=== PATIENT | male | born 1965 | race Caucasian/White ===

== ENCOUNTER 2023-08-12 12:25 | Emergency (ER) | payer BC, SELFPAY ==
[2023-08-12] VITALS (11 sets, daily range): BP systolic 131–163; BP diastolic 83–94; PULSE 69–88; RESP 16; TEMP 36.6; O2SAT 90–97; BMI 30.5
--- NOTE | 2023-08-12 12:39 | ED_ITS ---
HPI - General Adult General Time Seen by Provider: 12:39 Date Seen: 08/12/23 Chief complaint: Shortness of Breath/Dyspnea Stated complaint: Shortness of breath, tightness in chest Time Seen by Provider: 08/12/23 12:30 Source: patient and RN notes reviewed Mode of arrival: ambulatory Limitations: no limitations History of Present Illness HPI narrative: This 57-year-old male is coming into the ER with concerns of chest tightness/heaviness, brain fog, intermittent tingling on the left side of his fingers and toes. Patient started with these symptoms yesterday, awoke with them when he was ice fishing. He was ice fishing with just his son. There are no known ill contacts. He has not had any fevers or chills, no shortness of breath, no sense of any fast heart rate but states he does just feel like his heart is beating ?heavier?, no respiratory symptoms with this such as cough, no nasal drainage, no sore throat, no headache. He does feel just a sense of brain fog. He has noted no visual changes such as blurry vision or double vision. He has had no change in appetite, no reflux, no heartburn, no nausea or vomiting, no abdominal pain, no diarrhea. He took an 81 mg aspirin with his lisinopril and atorvastatin which are as usual medicines, did take the 81 mg aspirin this morning. He works at the [employer] in maintenance, just felt like he probably s hould not be there with the job he performs. He has had no prior cardiac or respiratory diagnoses. As far as family history, there is dementia with his dad and paternal grandfather, relates that many relatives have lived into the 90s. He has noticed no weakness of his extremities, gait has been normal, has not been dropping anything. He cannot really tell me if the tingling feeling feels numb or more tingly. He states he is really not having it right now, it is just been intermittent in the fingers and toes on the left side. His chest discomfort is more like heaviness and is certainly not as bad as what it has been per his report at this time. Related Data Home Medications Medication Instructions Recorded Confirmed atorvastatin 20 mg tablet 20 mg PO DAILY 08/12/23 08/12/23 lisinopril 20 mg tablet 20 mg PO DAILY 08/12/23 08/12/23 Allergies Allergy/AdvReac Type Severity Reaction Status Date / Time No Known Drug Allergies Allergy Verified 08/12/23 12:33 Review of Systems Status of ROS: Reports: 10 or more systems reviewed and unremarkable except as noted in History and below [facility] Social History Smoking Status: Never smoker Do you use any of these nicotine containing products: None Second hand tobacco smoke exposure: No How often do you have a drink containing alcohol: never How often do you have six or more drinks on one occasion: Never AUDIT-C Alcohol total score: 0 Non-prescribed substance use: denies use service: No Exam Const: Vital Signs, click to edit/add: Vital Signs - 24 hr 08/12/23 12:27 08/12/23 12:46 08/12/23 12:59 Temperature 97.8 F Pulse Rate 81 Pulse Rate [Pulse Oximeter] 88 Respiratory Rate 16 Blood Pressure Blood Pressure [Ri ght Upper Arm] 163/88 H Pulse Oximetry 97 97 95 Oxygen Delivery Me thod Room Air 08/12/23 13:00 08/12/23 13:01 08/12/23 13:02 Temperature Pulse Rate 87 83 69 Pulse Rate [Pulse Oximeter] Respiratory Rate Blood Pressure 141/94 H 141/89 H Blood Pressure [Ri ght Upper Arm] Pulse Oximetry 91 94 90 Oxygen Delivery Me thod 08/12/23 13:30 08/12/23 14:00 08/12/23 14:01 Temperature Pulse Rate 80 79 78 Pulse Rate [Pulse Oximeter] Respiratory Rate Blood Pressure 131/83 Blood Pressure [Ri ght Upper Arm] Pulse Oximetry 92 94 95 Oxygen Delivery Me thod 08/12/23 14:02 08/12/23 14:30 Temperature Pulse Rate 75 81 Pulse Rate [Pulse Oximeter] Respiratory Rate Blood Pressure Blood Pressure [Ri ght Upper Arm] Pulse Oximetry 95 95 Oxygen Delivery Me thod This 57-year-old male is alert, interactive, no apparent distress. Pupils equal round reactive, sclera clear, extraocular muscles intact. Symmetrical facial function, speech is normal. Neck is supple, no cervical adenopathy, no thyromegaly masses or nodules, do not see any jugular venous distension. He sits up easily, lungs are clear, good air entry, no wheezing or crackles. CV regular rate and rhythm, no murmur, normal S1-S2, no S3-S4. Abdomen is soft, nontender, nondistended, no organomegaly. He has no reproducible chest wall tenderness. He has normal pinprick sensation in his fingers, symmetrical. Strength is 5/5 and symmetrical through out upper and lower extremities, has normal rapid alternating finger movements, see no tremor. His gait was normal ambulating in. Documenting provider has reviewed patient's vital signs: yes Course Course ED Course: This is a 57-year-old male is exhibiting chest symptoms, sense of brain fog but also complaint of intermittent left toes and fingers tingling. Will be getting EKG, have him on cardiac monitoring and pulse oximetry. Will look at a point of care troponin but get full complement of labs. His chest symptoms are minimal at this time, is exhibiting no neurologic symptoms at this time. Will continue to monitor. Nursing staff did appropriately do a triple viral swab on this patient which is also pending. He is currently hemodynamically stable, there is a vast differential for his symptoms, difficult to tie all of his symptoms together. Reevaluation(s) Time of Reevaluation #1: 14:41 Reevaluation #1: Have reviewed with patient his negative head CT, his normal labs. He essentially has had the chest symptoms since yesterday, are better today. They were there all day yesterday. I have reviewed with him that we can say that he has not had a heart attack. We have not conclusively ruled out underlying ischemic heart disease however. He is aware that if he has progressive or worsening symptoms, would recommend re-evaluation. He will need a cardiac stress test followed up. We also did discuss that if he has progressive symptoms that her seeming COVID like, would recommend retesting for COVID. Sometimes early on, COVID test can be negative. At this time, will plan to discharge to home for further outpatient follow-up. Will provide a note to be off work the next 2 days. Consultations Consultation #1: Did review with Dr. Crum on-call for stroke I reviewed the case. He would proceed with a head CT but if that is normal, would stop there. He has seen through the years that many patients with atypical left-sided chest symptoms will get left-sided peripheral symptoms. The fact that there are no facial symptoms with this, it is positive symptomatology such as tingling and intermittent is reassuring. If the head CT is normal, he would stop the neurologic evaluation there. Time: 13:29 Vital Signs Vital signs: Initial Vital Signs Temperature 97.8 F 08/12/23 12:27 Temperature Source Temporal Artery Scan 08/12/23 12:27 Pulse Rate 88 08/12/23 12:27 Respiratory Rate 16 08/12/23 12:27 Blood Pressure 163/88 H 08/12/23 12:27 Blood Pressure Mean 113 H 08/12/23 12:27 Blood Pressure Position Sitting 08/12/23 12:27 Pulse Oximetry 97 08/12/23 12:27 Oxygen Delivery Method Room Air 08/12/23 12:27 Vital Signs Temperature 97.8 F 08/12/23 12:27 Pulse Rate 88 08/12/23 12:27 Respiratory Rate 16 08/12/23 12:27 Blood Pressure 163/88 H 08/12/23 12:27 Pulse Oximetry 97 08/12/23 12:27 Oxygen Delivery Method Room Air 08/12/23 12:27 Temperature 97.8 F 08/12/23 12:27 Pulse Rate 81 08/12/23 14:30 Respiratory Rate 16 08/12/23 12:27 Blood Pressure 131/83 08/12/23 14:01 Pulse Oximetry 95 08/12/23 14:30 Oxygen Delivery Method Room Air 08/12/23 12:27 Medical Decision Making Lab Data Labs: Lab Results 08/12/23 08/12/23 08/12/23 Range/Units 12:30 12:47 12:50 WBC 6.54 (4.50-11.00) K/uL RBC 5.38 (4.30-5.90) m/uL Hgb 16.3 (13.5-17.5) gm/dL Hct 47.8 (37.0-53.0) % MCV 89 (80-100) fL MCH 30 (26-34) pg MCHC 34 (32-36) gm/dL RDW Coeff of [place] 12.1 (11.5-15.5) % Plt Count 226 (140-440) K/uL Neut % (Auto) 71.3 (42.0-72.0) % Lymph % (Auto) 19.3 L (20-44) % [place] % (Auto) 8.4 (0.0-11.0) % Eos % (Auto) 0.5 (0.0-7.0) % Baso % (Auto) 0.3 (0.0-3.0) % Neut # (Auto) 4.67 (1.7-7.0) K/uL Lymph # (Auto) 1.30 (0.90-2.90) K/uL [place] # (Auto) 0.50 (0.00-0.90) K/UL Eos # (Auto) 0.03 (0.00-0.50) K/uL Baso # (Auto) 0.02 (0.00-0.30) K/uL Abs Immat Gran (auto) 0.01 (0.00-0.30) K/uL Imm/Tot Granulo (auto) 0.2 % D-Dimer Quant (PE/DVT) 0.33 (0.00-0.50) ug/ml Sodium 139 (135-149) mmol/L Potassium 3.9 (3.6-5.1) mmol/L Chloride 105 (96-114) mmol/L Carbon Dioxide 26 (20-32) mmol/L Anion Gap 8 (7-15) mEq/L BUN 15 (7-30) mg/dL Creatinine 0.8 (0.5-1.5) mg/dL Estimated Creat Clear 110.47 Estimated GFR 103 ml/min Glucose 104 (60-115) mg/dL Lactate 0.9 (0.5-1.9) mmol/L Calcium 9.3 (8.4-10.6) mg/dL Magnesium 2.2 (1.5-2.6) mg/dL Total Bilirubin 0.7 (0.1-1.5) mg/dL AST 39 H (12-35) U/L ALT 41 (4-50) U/L Alkaline Phosphatase 75 (40-150) U/L Troponin I < 0.01 L (0.01-0.04) ng/mL C-Reactive Protein 0.5 (0.5-1.0) mg/dL NT-Pro-B Natriuret Pep < 20 pg/mL Total Protein 7.8 (6.0-8.3) g/dL Albumin 4.7 (3.3-5.0) g/dL SARS-CoV-2 (PCR) Negative SARS-CoV-2 (Negative) Influenza Type A (PCR) Negative PCR FLU A (Negative) Influenza Type B (PCR) Negative PCR FLU B (Negative) RSV (PCR) Negative PCR RSV (Negative) POC Troponin I 0.01 (0.01-0.04) ng/ml Imaging Data Chest x-ray: Attestation: I have reviewed the pertinent imaging results. My impression: No acute pathology on my preliminary review. Radiologist's impression: Patient: TIM JOSE Facility:?[facility] Patient ID:?[id number] Site Patient ID:?[id number]. Site :?[id number] Study:?XRay Chest PORTABLE-08/12/2023 1:06:35 PM Ordering Physician:?Peg Kothari Final Report: INDICATION: Chest pain. TECHNIQUE: Chest 1 views. COMPARISON: None. FINDINGS: Cardiovascular and mediastinum: Heart size and vasculature are normal in caliber and appearance. Lungs and pleural spaces: Lungs are clear. No sign of infiltrate or mass. No sign of pleural effusion. No pneumothorax. Bones and soft tissues: No significant findings. IMPRESSION: No acute or significant findings. Dictated by Norman Badillo MD @ 08/12/2023 1:16:36 PM (Electronic Signature) CT scan - head: Attestation: I have reviewed the pertinent imaging results. Radiologist's impression: Patient: TIM JOSE Facility:?[facility] Patient ID:?[id number] Site Patient ID:?[id number]. Site :?[id number] Study:?CT Head W/O-08/12/2023 1:49:07 PM Ordering Physician:?Peg Kothari Final Report: INDICATION: left finger/toes numbness/tingling TECHNIQUE: CT head without contrast. COMPARISON: None. FINDINGS: CSF spaces: Within normal limits for age. Brain parenchyma and extra-axial spaces: The cosme-white differentiation is normal. No sign of mass effect, hemorrhage, or midline shift. No extra-axial fluid collection. Skull base and calvarium: The visualized paranasal sinuses and mastoid air cells demonstrate no acute or significant findings. The visualized orbits are grossly unremarkable. No skull fractures. IMPRESSION: Unremarkable noncontrast head CT. Please note that all CT scans at this facility use dose modulation, iterative reconstruction, and/or weight-based dosing when appropriate to reduce radiation dose to as low as reasonably achievable. Dictated by Humberto Wood MD @ 08/12/2023 2:02:52 PM (Electronic Signature) ECG Data Attestation: I personally reviewed and interpreted this ECG as follows: (Normal sinus rhythm, 86 beats per minute. Left anterior fascicular block. No acute ischemic change. QT corrected 399 milliseconds.) Prior ECG tracings: not available for review Discharge Plan Discharge Clinical Impression: Brain fog, Tingling, Chest discomfort Patient Disposition: Home, Self-Care Condition: Stable Instructions: Chest Pain (ED), Paresthesia (ED), Noncardiac Chest Pain (ED) Additional Instructions: Do recommend getting retested for COVID if you should have symptoms that progressed and are consistent with COVID illness. Otherwise, need to contact your primary clinic to get scheduled for cardiac stress test as soon as they are able to get you in. Stay on current medications. If you should develop increasing chest pain, have any sense of irregular heartbeat, fast heartbeat, developed respiratory symptoms such as difficulty breathing or shortness of breath with chest discomfort, do recommend re-evaluation in the ER in the interim. That any point you have concerns or feel you need to be re-evaluated please do so. Activity Level: Activity as Tolerated Prescriptions: No Action atorvastatin 20 mg tablet 20 mg PO DAILY lisinopril 20 mg tablet 20 mg PO DAILY Follow Up/Referrals: Provider,Not a Local [Referring] - Stand Alone Forms: [facility] [employer] Info Instructions
--- NOTE | 2023-08-12 12:47 | CRLHL7_ITS ---
For Patients: As a result of the Century Cures Act, medical imaging exams and procedure reports are released immediately into your electronic medical record. You may view this report before your referring provider. If you have questions, please contact your health care provider. INDICATION: Chest pain. TECHNIQUE: Chest 1 views. COMPARISON: None. FINDINGS: Cardiovascular and mediastinum: Heart size and vasculature are normal in caliber and appearance. Lungs and pleural spaces: Lungs are clear. No sign of infiltrate or mass. No sign of pleural effusion. No pneumothorax. Bones and soft tissues: No significant findings. IMPRESSION: No acute or significant findings. Dictated by Norman Badillo MD @ 08/12/2023 1:16:36 PM (Electronically Signed)
[2023-08-12 13:01] LABS: Lactate* 0.9 mmol/L (0.5-1.9)
[2023-08-12 13:06] LABS: Basophils Absolute Auto 0.02 K/uL (0.00-0.30); Basophils Percent Auto 0.3 % (0.0-3.0); Eosinophils Absolute Auto 0.03 K/uL (0.00-0.50); Eosinophils Percent Auto 0.5 % (0.0-7.0); Hematocrit 47.8 % (37.0-53.0); Hemoglobin* 16.3 gm/dL (13.5-17.5); Immature Granulocytes Abs Auto 0.01 K/uL (0.00-0.30); Immature Granulocytes Pct Auto 0.2 %; Lymphocytes Percent Auto 19.3 % (20-44); Mean Corpuscular HGB Conc 34 gm/dL (32-36); Mean Corpuscular Hemoglobin 30 pg (26-34); Mean Corpuscular Volume 89 fL (80-100); Monocytes Percent Auto 8.4 % (0.0-11.0); Neutrophils Absolute Auto 4.67 K/uL (1.7-7.0); Neutrophils Percent Auto 71.3 % (42.0-72.0); Platelet Count* 226 K/uL (140-440); RDW Coefficient of Variation % 12.1 % (11.5-15.5); Red Blood Count 5.38 m/uL (4.30-5.90); White Blood Count* 6.54 K/uL (4.50-11.00)
[2023-08-12 13:06] LABS: Troponin, Point-of-Care* 0.01 ng/ml (0.01-0.04)
[2023-08-12 13:08] LABS: Slide Review Reflex No
--- OUTSIDE RECORDS SUMMARY | 2023-08-12 13:18 | XMS_ITS | Clinical Summary ---
Author Name Unknown Organization [facility] Address [place], [place] [address] Care Team Providers Care Machine Feller Name Role Phone VotelCurry MD Primary Care Provider + Medications Medication Sig Dispensed Refills Start Date End Date Status ASPIRIN 81 MG TAB, DELAYED RELEASE take 1 tablet (81 mg) by oral route once daily 0 06/18/2007 Active fluticasone (50 mcg per actuation) nasal solution (FLONASE)Indicati ons:Seasonal allergies Inhale 1 [place] into both nostrils once daily. 1 Bottle 0 11/13/2018 Active CPAPIndications:O SA (obstructive sleep apnea) New CPAP machine for home use at pressure: 5-16 cmw , Heated humidifier x 1 q 5 yr, Humidifier chamber x 1 q 6 mo, Full face mask x1 q 3mos, with cushion x 1 q mo, Heated tubing x 1 q 3 mo, Headgear x 1 q 6 mo, Filters: Disposable x 2 q mo non-disposable filters x1 q 6mo, Length of Need: 99 months, Frequency of use: Daily 1 Device 11 04/08/2020 Active CPAPIndications:O SA (obstructive sleep apnea),Skin irritation CPAP machine for home use at pressure 5-16, full face mask x1/3month with a full face cushion x1/mo 1 Device 11 05/27/2020 Active lisinopriL (PRINIVIL; ZESTRIL) 20 mg tabletIndications :HTN (hypertension) TAKE 1 TABLET BY MOUTH EVERY DAY 30 Tablet 0 07/20/2023 Active atorvastatin (LIPITOR) 20 mg tabletIndications :High cholesterol TAKE 1 TABLET BY MOUTH EVERY DAY 30 Tablet 0 07/20/2023 Active atorvastatin (LIPITOR) 20 mg tabletIndications :High cholesterol Take 1 Tablet (20 mg) by mouth once daily. 90 Tablet 3 07/26/2022 3 Discontinued lisinopriL (PRINIVIL; ZESTRIL) 20 mg tabletIndications :HTN (hypertension) Take 1 Tablet (20 mg) by mouth once daily. 90 Tablet 3 07/26/2022 3 Discontinued Active Problems Problem Noted Date Diagnosed Date Essential hypertension 04/05/2020 JINNY (obstructive sleep apnea) 04/05/2020 Elevated blood pressure read ing without diagnosis of hypertension 05/30/2017 Routine adult health maintenance 01/12/2016 Overview: Colonoscopy 12/2015 normal repeat in 10 years Seasonal allergies 11/22/2014 High cholesterol Encounters Date Type Department Care Team Description 07/26/2023 Nurse/Clinic Staff Only [facility] [address] [place] [address] Yancy Prater PA Immunization/Injectio n (shingles #1) 07/18/2023 Refill [facility] [address] [place] [address] Votel, Curry Xie MD Refill Request (Lisinopril, Atorvastatin) from Last 3 Months Immunizations Name Administration Dates Next Due COVID-19 vaccine (Moderna 100mcg/0.5mL) PF, MDV 11/07/2020,10/10/2020 COVID-19 vaccine (Moderna Fabio destiny 50mcg/0.25mL) PF, MDV 08/04/2021 Influenza A (H1N1), Inactivated 06/20/2009 Influenza, IIV3 (Age 6-35 mos) 05/22/2011 Influenza, IIV3 (Age >=3 years) 05/24/20 14,05/30/2013,06/23/2012,2010,05/05/2010 Influenza, IIV4 05/18/2021, 0,04/24/2017,2015 Influenza, IIV4 (=>6mos) MDV 05/23/2019,05/05/20 18 Influenza, Whole Virus 06/20/2012 Influenza, ccIIV3 (Age >=18 Years) 04/21/2015 Td (Age >=7 Years) 07/10/2006 Tdap 09/03/2012,06/27/2006 Zoster (Shingrix-RZV, recombinant) 07/26/2023 Family History Medical History Relation Name Comments Other Daughter Scoliosis Good Health Father Hyperlipidemia Mother Hypertension Mother Relation Name Status Comments Daughter Father Alive Mother Alive Social History Tobacco Use Types Packs/Day Years Used Date Smoking Tobacco: Never Smokeless Tobacco: Never Tobacco Cessation:Counseling Given: Yes Alcohol Use Standard Drinks/Week Comments Yes 0 (1 standard drink = 0.6 oz pur e alcohol) 1 drink 3 times weekly PHQ-2 Answer Date Recorded PHQ-2 TOTAL SCORE 0 05/18/2021 Social Connections Answer Date Recorded Frequency of Communication with Friends and Fami ly Not on file 07/22/2021 Financial Resource Strain Answer Date R ecorded Difficulty of Paying Living Expenses Not on file 07/22/2021 Difficulty of Paying Living Expenses Not on file 07/22/2021 Sex and Gender Information Value Date Recorded Sex Assigned at Not on file Gender Identity Not on file Sexual Orientation Not on file Obstetrics History Last Filed Vital Signs Vital Sign Reading Time Taken Comments Blood Pressure 128/74 07/26/2022 12:55 PM [employer] Pulse 64 07/26/2022 12:55 PM [employer] Temperature 36.2 ??C (97.2 ??F) 04/05/2020 7:50 AM CD T Respiratory Rate - - Oxygen Saturation 96% 07/26/2022 12: 55 PM [employer] Inhaled Oxygen Concentration - - Weight 102.2 kg (225 lb 6.4 oz) 023 12:55 PM [employer] Height 184.5 cm (6' 0.64) 07/26/2022 1 2:55 PM [employer] Body Mass Index 30.04 07/26/2022 12:55 PM [employer] Plan of Treatment Health Maintenance Due Date Last Done Comments HIV for age 15-65 12/04/1979 Hepatitis C screening for age 18-79 1982 Depression screening for age 12+ 05/18/2022 05/18/2021, 05/16/2021, 03/03/2020, Additional history exists Tetanus booster 09/03/2022 09/03/2012, 06/22, 06/27/2006 COVID-19 vaccine series ( season) 2023 08/04/2021, 11/07/2020, 10/10/2020 Influenza for age 50-64 03/22/2023 05/18/20 21, 04/05/2020, 05/23/2019, Additional history exists BMI (ht and wt on same day) for age 18+ 07/26/2023 07/26/2022, 05/18/2021, 04/05/2020, Additional history exists Zoster (shingles) series for age 50+ (2 of 2) 09/20/2023 07/26/2023 Colonoscopy through age 75 01/11/2026 01/12/2016, Lipids for age 45-75 07/26/2027 07/26/2022, 05/18/2021, 03/03/2020, Additional history exists Tdap Completed 09/03/2012, 06/27/2006 Pneumococcal series for age 6-64 Aged Out No longer eligible based on patient's age to complete this topic Care Teams Machine Feller Relationship Specialty Start Date End Date Votel, Curry Xie MD [address] [place] [address] PCP - General 06/04/06
[2023-08-12 13:20] LABS: PCR FLU A Negative PCR FLU A (Negative); PCR FLU B Negative PCR FLU B (Negative); PCR RSV Negative PCR RSV (Negative); SARS PCR* Negative SARS-CoV-2 (Negative)
[2023-08-12 13:21] LABS: Albumin* 4.7 g/dL (3.3-5.0); Chloride* 105 mmol/L (96-114)
[2023-08-12 13:22] LABS: Potassium* 3.9 mmol/L (3.6-5.1); Sodium* 139 mmol/L (135-149)
[2023-08-12 13:24] LABS: Bilirubin Total* 0.7 mg/dL (0.1-1.5); Creatinine* 0.8 mg/dL (0.5-1.5); D Dimer Quantitative* 0.33 ug/ml (0.00-0.50); Est. Creatinine Clearance* 110.47; Estimated Glomerular Filt Rate 103 ml/min
[2023-08-12 13:25] LABS: Alanine Aminotransferase* 41 U/L (4-50); Alkaline Phosphatase* 75 U/L (40-150); Anion Gap 8 mEq/L (7-15); Aspartate Amino Transferase* 39 U/L (12-35); Blood Urea Nitrogen* 15 mg/dL (7-30); Calcium* 9.3 mg/dL (8.4-10.6); Carbon Dioxide* 26 mmol/L (20-32); Glucose* 104 mg/dL (60-115); Magnesium* 2.2 mg/dL (1.5-2.6); Total Protein* 7.8 g/dL (6.0-8.3)
[2023-08-12 13:28] LABS: C Reactive Protein* 0.5 mg/dL (0.5-1.0)
--- NOTE | 2023-08-12 13:32 | CRLHL7_ITS ---
For Patients: As a result of the Century Cures Act, medical imaging exams and procedure reports are released immediately into your electronic medical record. You may view this report before your referring provider. If you have questions, please contact your health care provider. INDICATION: left finger/toes numbness/tingling TECHNIQUE: CT head without contrast. COMPARISON: None. FINDINGS: CSF spaces: Within normal limits for age. Brain parenchyma and extra-axial spaces: The cosme-white differentiation is normal. No sign of mass effect, hemorrhage, or midline shift. No extra-axial fluid collection. Skull base and calvarium: The visualized paranasal sinuses and mastoid air cells demonstrate no acute or significant findings. The visualized orbits are grossly unremarkable. No skull fractures. IMPRESSION: Unremarkable noncontrast head CT. Please note that all CT scans at this facility use dose modulation, iterative reconstruction, and/or weight-based dosing when appropriate to reduce radiation dose to as low as reasonably achievable. Dictated by Humberto Wood MD @ 08/12/2023 2:02:52 PM (Electronically Signed)
[2023-08-12 13:37] LABS: NT Pro B Type NatriureticPept* < 20 pg/mL; Troponin I* < 0.01 ng/mL (0.01-0.04)
== END 2023-08-12 14:53 | disposition home or self-care (01) ==
PROVIDERS: Emergency Provider Family Medicine; PCP Family Medicine
DX: R41.0 Disorientation, unspecified (principal); R20.2 Paresthesia of skin; R07.9 Chest pain, unspecified
CPT/HCPCS: 36415; 70450; 71045; 80053; 83605; 83735; 83880; 84484; 85025; 85379; 86140; 87631; 93005; 94761; 99284; 99285